=== PATIENT | female | born 1965 | race Caucasian/White ===

== ENCOUNTER → 2017-05-28 | Day surgery (SDC) | payer BC ==
[2017-05-25 15:36] LABS: BASOPHILS # (AUTO) 0.1 (0.0-0.1); EOSINOPHILS # (AUTO) 0.2 (0.0-0.4); EOSINOPHILS % 1.9 % (0.0-6.0); LYMPHOCYTES # (AUTO) 2.7 (1.0-3.2); MEAN CORPUSCULAR HEMOGLOBIN 34.6 pg (28-32); MEAN CORPUSCULAR HGB CONC 34.2 g/dL (31-35); MEAN CORPUSCULAR VOLUME 101.1 fL (81-99); MONOCYTES # (AUTO) 0.8 (0.2-0.8); MONOCYTES % 7.7 % (4.4-11.3); NEUTROPHILS # (AUTO) 6.2 (2.1-6.9); NEUTROPHILS % 61.6 % (38.7-80.0); PLATELET COUNT 277 x10e3/uL (140-360); RED BLOOD COUNT 3.76 x10e6/uL (3.6-5.1); RED CELL DISTRIBUTION WIDTH 13.5 % (11.7-14.4)
[~2017-05-28] MED LIST: FENTANYL CITRATE/PF 100MCG/2 ML INJ ONE; GLUCAGON FOR INJ 1 MG VIAL ONE; HYOSCYAMINE SULFATE 0.5 MG/ML AMP ONE; LEVOTHYROXINE50 MCG PO; LIDOCAINE HCL 2% LOCAL INJ 5 ML SDV VIAL INJ ONE; MIDAZOLAM HCL 2 MG/2 ML VIAL ONE; PROPOFOL IV EMULSION 10 MG/ML 50 ML VIAL ONE; VALACYCLOVIR500 MG PO
[2017-05-28 12:37] LABS: WBC,FECAL (FECAL LACTOFERRIN) NEGATIVE (NEGATIVE)
--- NOTE | 2017-05-28 13:00 | Operative Report ---
DATE OF PROCEDURE: May 28, 2017 PROCEDURES PERFORMED 1. Esophagogastroduodenoscopy with biopsies. 2. Colonoscopy with polypectomy and biopsies. INDICATIONS FOR EGD: Upper abdominal pain, nausea and vomiting, history of heartburn and indigestion. INDICATIONS FOR COLONOSCOPY: Colorectal cancer screening, history of colon polyps, diarrhea. MEDICATION: Patient was done under MAC. Please see anesthesiologist's note. PROCEDURE: With the patient in the left lateral decubitus position, the flexible fiberoptic Olympus gastroscope was introduced into the esophagus under direct visualization without any difficulty. An erosion was noted in the distal esophagus along with patchy areas of erythema. A minute tongue of velvety red mucosa was noted to extend proximally from the GE junction. That was biopsied to rule out Reis's. The GE junction was somewhat nodular, and that was biopsied. The scope was then advanced with ease into the stomach, traversing a small sliding hiatal hernia. Mucosa overlying the antrum and the body revealed some diffuse erythema and mild to moderate edema, and biopsies were obtained and sent to stain for H. pylori. Pylorus appeared to be of normal contour and shape. It was intubated with ease, and the scope was advanced all the way to the 2nd portion of the duodenum. Biopsies were obtained from the proximal 2nd portion to rule out sprue. Mucosa overlying the duodenal bulb appeared to be within normal limits. The scope was then withdrawn back into the stomach and retroflexed, and mucosa overlying the fundus and cardia appeared to be within normal limits. The previously described hiatal hernia was also noted in the retroflexed position. The scope was then straightened out, and the scope was subsequently withdrawn. Patient tolerated the procedure well. IMPRESSION 1. Distal esophagitis. 2. Rule out Reis's esophagus. 3. Nodular gastroesophageal junction, biopsied. 4. Small sliding hiatal hernia. 5. Gastritis, biopsied. Biopsies sent to stain for H. pylori. 6. Rule out sprue. PLAN: Follow up histology. Initiate Protonix 40 mg 1 p.o. q.a.m. and a.c. The patient was then turned around. After adequate lubrication of the anal canal, a flexible fiberoptic Olympus colonoscope was inserted into the rectum with ease and advanced all the way to the cecum. The mucosa overlying the cecum appeared to be within normal limits. The ileocecal valve was intubated. The scope was advanced into the terminal ileum. Biopsies were obtained. The scope was then withdrawn back into the colon. It was then withdrawn slowly. A minute polyp was hot biopsied from the proximal ascending colon. The rest of the ascending and transverse appeared to be within normal limits. Two polyps were encountered in the descending, 1 was snared and 1 was hot biopsied. Diverticular disease was noted to involve the distal descending and the sigmoid colon. Two polyps were hot biopsied from the sigmoid colon. One polyp was snared from the rectum. The scope was then retroflexed into the distal rectum and focal nodularity was noted at the dentate line, and that was hot biopsied. The scope was then straightened out. It was subsequently withdrawn, after securing an adequate stool specimen that was sent for the appropriate stool studies. Patient tolerated the procedure well. IMPRESSION 1. Ascending colon polyp, hot biopsied. 2. Descending colon polyps times 2, one snared and one hot biopsied. 3. Diverticulosis. 4. Sigmoid colon polyps times 2, hot biopsied. 5. Rectal polyp snared times 1. 6. Focal nodularity at dentate line, hot biopsied. PLAN: Follow up histology. Follow up stool studies. Initiate Bentyl 10 mg 1 p.o. t.i.d. Patient will need a followup colonoscopy in 3 years. Job#: [id number]
[2017-05-28 13:51] LABS: C DIFFICILE TOXIN A&B AMP PROB NEGATIVE (NEGATIVE)
== END | disposition home or self-care (01) ==
LOC: OR 07:40
PROVIDERS: ATTEND Internal Medicine Gastroenterology
DX: K29.50 Unspecified chronic gastritis without bleeding (principal); D12.4 Benign neoplasm of descending colon; K62.1 Rectal polyp; K22.10 Ulcer of esophagus without bleeding; K21.0 Gastro-esophageal reflux disease with esophagitis; K31.89 Other diseases of stomach and duodenum; K44.9 Diaphragmatic hernia without obstruction or gangrene; K62.5 Hemorrhage of anus and rectum; A63.0 Anogenital (venereal) warts; G47.33 Obstructive sleep apnea (adult) (pediatric); K57.30 Diverticulosis of large intestine without perforation or abscess without bleeding; K62.89 Other specified diseases of anus and rectum; R19.7 Diarrhea, unspecified; E03.9 Hypothyroidism, unspecified; R49.0 Dysphonia; E78.5 Hyperlipidemia, unspecified; J41.0 Simple chronic bronchitis; F17.210 Nicotine dependence, cigarettes, uncomplicated; Z01.810 Encounter for preprocedural cardiovascular examination; Z01.812 Encounter for preprocedural laboratory examination; Z68.29 Body mass index [BMI] 29.0-29.9, adult
CPT/HCPCS: 36415; 43239; 45384; 45385; 81025; 83630; 83993; 85025; 87045; 87177; 87328; 87493; 93005; J1610; J1980; J2001; J2250; 45380

== ENCOUNTER 2018-10-04 21:19 | Emergency (ER) | payer BC ==
[~2018-10-04] VITALS: Ht 162.6 cm; Wt 80.3 kg
[~2018-10-04 21:19] MED LIST changes: -FENTANYL CITRATE/PF 100MCG/2 ML INJ ONE; -GLUCAGON FOR INJ 1 MG VIAL ONE; -HYOSCYAMINE SULFATE 0.5 MG/ML AMP ONE; -LIDOCAINE HCL 2% LOCAL INJ 5 ML SDV VIAL INJ ONE; -MIDAZOLAM HCL 2 MG/2 ML VIAL ONE; -PROPOFOL IV EMULSION 10 MG/ML 50 ML VIAL ONE
[2018-10-04] MEDS ORDERED: CLONIDINE HCL 0.1 MG TAB PO ONE (22:00)
[2018-10-04 22:45] VITALS: BP 165/89
== END 2018-10-04 23:12 | disposition home or self-care (01) ==
LOC: ER 21:19
DX: I10 Essential (primary) hypertension (principal); E78.5 Hyperlipidemia, unspecified; E03.9 Hypothyroidism, unspecified; K21.9 Gastro-esophageal reflux disease without esophagitis
CPT/HCPCS: 99283

== ENCOUNTER → 2019-07-17 | Outpatient (CLI) | payer BC ==
--- NOTE | 2019-07-17 11:22 | Diagnostic Imaging Report ---
Exam: Pelvic ultrasound. History: Irregular menstruation Comparison: None Findings: Transabdominal and endovaginal sonographic evaluation of the pelvis. The uterus is anteverted in position, measuring 9.3 x 4.8 x 5.1cm. No fibroids are identified. Endometrial stripe thickness is 4 mm. The right ovary measures 2.4 x 1.1 x 1.4 cm and appears unremarkable. The left ovary measures 2.0 x 1.3 x 2.1 cm and appears unremarkable. Normal arterial and venous waveforms to both ovaries. No evidence of ovarian torsion. Multiple subcentimeter anechoic nabothian cysts in the cervix. No free fluid in the pelvis. Impression: Normal arterial and venous waveforms to both ovaries. No evidence of ovarian torsion. Signed by: Susan Jensen MD on 07/17/2019 11:19 AM
== END ==
LOC: MAMMO 08:49
PROVIDERS: ATTEND Specialist
DX: Z12.31 Encounter for screening mammogram for malignant neoplasm of breast (principal); N92.5 Other specified irregular menstruation
CPT/HCPCS: 76830; 76856; 77067; 93976

== ENCOUNTER → 2020-09-01 | Outpatient (CLI) | payer BC | LOC: MAMMO 14:42 | PROVIDERS: ATTEND Specialist | DX: Z12.31 Encounter for screening mammogram for malignant neoplasm of breast (principal) | CPT/HCPCS: 77067 ==